=== PATIENT | female | born 2000 | race Two or more races ===

== ENCOUNTER 2024-08-15 16:40 | Inpatient (IN) | payer MEDICAID, OTHER ==
[~2024-08-15] VITALS: Ht 157.5 cm; Wt 48.2 kg
--- NOTE | 2024-08-15 17:01 | ED.PDOC ---
HPI Allergic reaction HPI Comments HPI: 24-year-old female a one presents to the emergency department for evaluation of a hives/rash that started this past Patrick after she started her care pills. Patient went to urgent care yesterday and was prescribed loratadine. Patient has been applying some cream over the areas of rashes but s he feels it is not improving and flares up again. She points to her medial thighs and showed me some pictures of her extremities of hives. Denies any other acute symptoms. Patient describes the hives being itchy. Initial Vitals: Temp : 98F BP: 128/95 HR: 109 RR: 19 O2 Sat.: 100% Past Medical History: Granulomatous Mastitis Past Surgical History: Denies Social History: Denies smoking, ETOH, or drug use. Medications: Loratadine Allergies: NKDA HPI: Poor Historian. Past Medcial History: Past Surgical History: REVIEW OF SYSTEMS: CONSTITUTIONAL: Denies acute: fever, diaphoresis, chills, generalized weakness. HEAD: Denies acute: headache, photophobia Eyes: Denies acute: Double vision, vision loss, eye pain, eye discharge. EARS: Denies acute: tinnitus, hearing loss, ear discharge, ear pain, THROAT: Denies acute: sore throat, swelling, difficulty swallowing , pain with swallowing, change in voice. NECK: Denies acute: neck pain, neck swelling, stiff neck. HEART: Denies acute : chest pain, palpitations, LUNGS: Denies acute: SOB, wheezing, cough, hemoptysis ABDOMEN: Denies acute: abdominal pain, Nausea, Vomiting, diarrhea, melena , hematemesis, hematochezia SKIN: Denies acute: EXTREMITIES: Denies acute: calf pain, numbness, tingling, weakness, denies pain in extremity. Denies acute: Low back pain. Neuro: Denies acute: focal neurological deficit, motor or sensory focal neurological deficit, tremors, seizure like activity, confusion, dizziness, change in mental status, loss of bowel or bladder function, cauda equina like symptoms. : Denies acute: dysuria, hematuria, flank pain, increase in urinary frequency. PSYCH: Denies acute: hallucination, suicidal ideation, homicidal ideation. FEMALE: Denies acute: abnormal vaginal bleeding, foul odor, unusual discharge. PHYSICAL EXAM: General: no acute distress, awake and alert. Head: normocephalic, atraumatic. Neck: supple, trachea is midline, no swelling. Throat: Normal phonation. No obstruction, no swelling, no exudates, no erythema, no drooling, no tripoding. Eyes:, no erythema, no purulent discharge, no proptosis, no icterus. Heart: regular rate, regular rhythm, no significant murmur appreciated. Lungs: no apparent respiratory distress, Able to speak in full sentences. No wheezing, no rhonchi, no crackles. No stridors Clear to auscultation bilaterally. Abdomen: non tender to palpation, non distended, soft, no guarding, no rebound, + bowel sounds. Neuro: Awake, Alert, oriented to name, self, situation, follows commands GCS=15. Speech is normal. Skin: no petechia, no purpura, no cyanosis, non-pale, not jaundice. Noted hives in the medial thigh in minimal on bilateral AC fossa Lower extremities: --no - Pitting edema no deformity, no focal swelling, no calf TTP. Makes eye contact. moves all four extremities. Face: no apparent facial droop. Ambulating in the ED independently. Chief Complaint: Rash Time Seen by MD: 16:59 Reviewed Notes: Medications, Allergies Information Source: Patient Mode of Arrival: Ambulatory Was a procedure done? Was a procedure done?: No X-Ray, Labs, Meds, VS Vital Signs Date Time Temp Pulse Resp B/P (MAP) Pulse Ox O2 Delivery O2 Flow Rate FiO2 08/15/24 19:37 79 08/15/24 19:30 Room Air* 0 21 08/15/24 17:54 18 98 Room Air* 0 21 08/15/24 16:58 98.0 109 19 128/95 (106) 100 Lab Test 08/15/24 17:13 Range/Units White Blood Count 9.6 4.4-10.8 10^3/uL Red Blood Count 4.74 4.0-5.20 10^6/uL Hemoglobin 14.4 12.2-16.2 g/dL Hematocrit 42.7 36.0-46.0 % Mean Corpuscular Volume 90.1 80.0-100.0 fL Mean Corpuscular Hemoglobin 30.4 28.0-32.0 pg Mean Corpuscular Hemoglobin Concent 33.8 32.0-36.0 g/dL Red Cell Distribution Width 14.1 11.8-14.3 % Platelet Count 366 140-450 10^3/uL Mean Platelet Volume 6.8 L 6.9-10.8 fL Neutrophils (%) (Auto) 77.2 37.0-80.0 % Lymphocytes (%) (Auto) 14.6 10.0-50.0 % Monocytes (%) (Auto) 6.7 0.0-12.0 % Eosinophils (%) (Auto) 1.2 0.0-7.0 % Basophils (%) (Auto) 0.3 0.0-2.0 % Neutrophils # (Auto) 7.4 1.6-8.6 10 ^3/uL Lymphocytes # (Auto) 1.4 0.4-5.4 10 ^3/uL Monocytes # (Auto) 0.6 0-1.3 10 ^3/uL Eosinophils # (Auto) 0.1 0-0.8 10 ^3/uL Basophils # (Auto) 0 0-0.2 10 ^3/uL Nucleated Red Blood Cells 0.1 % Sodium Level 137 136-145 mmol/L Potassium Level 3.9 3.5-5.1 mmol/L Chloride Level 104 98-107 mmol/L Carbon Dioxide Level 28 20-31 mmol/L Anion Gap 5 5-15 Blood Urea Nitrogen 8 L 9-23 mg/dL Creatinine 0.65 0.550-1.02 mg/dL Glomerular Filtration Rate Calc 125 >90 mL/min BUN/Creatinine Ratio 12.3 10.0-20.0 Serum Glucose 105 74-106 mg/dL Calcium Level 9.8 8.7-10.4 mg/dL Total Bilirubin 0.3 0.2-1.0 mg/dL Aspartate Amino Transferase (AST) 12 L 13-40 U/L Alanine Aminotransferase (ALT) 21 7-40 U/L Alkaline Phosphatase 49 46-116 U/L Total Protein 7.1 5.7-8.2 g/dL Albumin 4.3 3.2-4.8 g/dL Current Medications Medications (Trade) Dose Ordered Sig/Luke Route Start Time Stop Time Status Last Admin Diphenhydramine HCl (Benadryl Injection) 25 mg ONCE ONCE IV 08/15/24 17:00 08/15/24 17:32 DC 08/15/24 17:51 Famotidine (Pepcid Injection) 20 mg ONCE ONCE IV 08/15/24 17:00 08/15/24 17:32 DC 08/15/24 17:51 Time of 1ST Reevaluation: 17:59 Reevaluation 1ST: Unchanged Patient Education/Counseling: Diagnosis, Treatment Family Education/Counseling: No Family Present Departure 1 Departure Time of Disposition: 20:31 Impression: Primary Impression: Allergic reaction Additional Impressions: Hives Syncope and collapse Disposition: ADMITTED INPATIENT Admit to: Tele Condition: Guarded Discharged With: Self Critical Care Note Critical Care Time?: No I personally scribed for GILMA FARRAR DO ([email or web address]) on 08/15/24 at 17:01. Electronically submitted by Theodore Eisenberg ([email or web address]). GILMA FARRAR DO Aug 15, 2024 17:01
[2024-08-15 17:42] LABS: Basophils # (auto) 0 10 ^3/uL (0-0.2); Basophils % (auto) 0.3 % (0.0-2.0); Eosinophils # (auto) 0.1 10 ^3/uL (0-0.8); Eosinophils % (auto) 1.2 % (0.0-7.0); Hematocrit 42.7 % (36.0-46.0); Hemoglobin 14.4 g/dL (12.2-16.2); Lymphocytes # (auto) 1.4 10 ^3/uL (0.4-5.4); Lymphocytes % (auto) 14.6 % (10.0-50.0); Mean Corpuscular Hemoglobin 30.4 pg (28.0-32.0); Mean Corpuscular Hgb Conc. 33.8 g/dL (32.0-36.0); Mean Corpuscular Volume 90.1 fL (80.0-100.0); Monocytes # (auto) 0.6 10 ^3/uL (0-1.3); Monocytes % (auto) 6.7 % (0.0-12.0); Neutrophils # (auto) 7.4 10 ^3/uL (1.6-8.6); Neutrophils % (auto) 77.2 % (37.0-80.0); Nucleated Red Blood Cells % 0.1 %; Platelet Count (auto) 366 10^3/uL (140-450); Red Blood Cells 4.74 10^6/uL (4.0-5.20); Red Cell Distribution Width 14.1 % (11.8-14.3); White Blood Cell 9.6 10^3/uL (4.4-10.8)
[2024-08-15] MEDS: diphenhdrAMINE HCL 50 MG/1 ML VL IV ONE (17:51)
[2024-08-15] MEDS: FAMOTIDINE (10MG/ML) 2ML VL IV ONE (17:51)
[2024-08-15 17:54] VITALS: RESP 18; O2SAT 98
[2024-08-15 18:00] LABS: Alanine Aminotransferase 21 U/L (7-40); Albumin 4.3 g/dL (3.2-4.8); Alkaline Phosphatase 49 U/L (46-116); Anion Gap 5 (5-15); BUN/Creatinine Ratio 12.3 (10.0-20.0); Bilirubin, Total 0.3 mg/dL (0.2-1.0); Calcium 9.8 mg/dL (8.7-10.4); Carbon Dioxide 28 mmol/L (20-31); Chloride 104 mmol/L (98-107); Glucose 105 mg/dL (74-106); Potassium 3.9 mmol/L (3.5-5.1); Sodium 137 mmol/L (136-145); Total Protein 7.1 g/dL (5.7-8.2)
[2024-08-15 18:05] LABS: Aspartate Aminotransferase 12 U/L (13-40); Blood Urea Nitrogen 8 mg/dL (9-23)
[2024-08-15] MEDS ORDERED: NITROGLYCERIN 0.4 MG SL TAB SL PRN ×2 (21:00→21:15)
[2024-08-15] MEDS ORDERED: ONDANSETRON HCL 4 MG/2 ML VIAL IV PRN ×2 (21:00→21:15)
[2024-08-15] MEDS ORDERED: DOCUSATE SOD 100 MG CAP PO PRN ×2 (21:00→21:15)
[2024-08-15] MEDS ORDERED: ACETAMINOPHEN 325 MG TAB PO PRN ×2 (21:00→21:15)
[2024-08-15] MEDS ORDERED: MORPHINE SULFATE INJ 2 MG/ml SYRG IV PRN ×4 (21:00→21:15)
--- NOTE | 2024-08-15 21:19 | DVHHPRES ---
History of Present Illness Resident Creating Document: [facility] RESIDENT History of Present Illness patient is 24 years old female , 7 weeks , history of granulomatous mastitis of the right breast, anxiety came with a complaint of rash. As he took some medication on Wednesday and started having rash and Wednesday it all went off. But all Wednesday the rest came back and she use some cream on it. Patient reported going to an ER on Wednesday and she will to go to ER if rash gets worse. Patient reported that the rash is getting worse especially on the inner thigh and right side of the hip. Rashes is itchy and sometime it can be painful. Patient also reported that the ER today she fainted twice once during drawing the blood and also the next morning when she was given some iv medications. Patient reported feeling some nausea and some dizziness before she passed out also post pending she felt some nausea and some confusion. Denied bowel or bladder incontinence or tongue biting. On further discussion patient also reported that she has been having this issue going on for since her childhood and the CRC almost having fainting twice a month. Patient reported that she saw Previously and they did a thorough workup but no reason was found why she is having fainting. Patient denied any shortness of breath, chest pain, acute joint pain or swelling, constipation or diarrhea, dysarthria or change in vision. Initial lab workup including CBC and BNP was nonsignificant. Past Medical History , 7 weeks , history of granulomatous mastitis , Anxiety Past Surgical History None Family History Mom had diabetes mellitus from colon cancer or stomach cancer, Past Social History Patient lives with her boyfriend at home, denies smoking or or alcoholism, ex marijuana use Review of Systems Review of Systems Allergy- meds, newly evident Patient was seen today at the bedside. Cardiovascular- deny acute chest pain or shortness of breath or cough or palpitation Respiratory- denies cough or short of breath or wheezing Gastrointestinal- denies any rectal bleeding, nausea or vomiting Musculoskeletal-denies acute joint swelling or tenderness or redness Neurological- denies acute dysarthria, dysphagia, change in vision Psychiatry- denies depression or SI or HI Allergies: Coded Allergies: NO KNOWN ALLERGIES (Unverified , 08/16/24) Medications Current Medications Medications Dose Ordered Sig/Luke Route Start Time Stop Time Status Last Admin Dose Admin Sodium Chloride 10 ml Q8HR IV 08/15/24 22:00 UNV Ondansetron HCl 4 mg Q4HP PRN IV 08/15/24 21:15 UNV Morphine Sulfate 2 mg Q4HPRN PRN IV 08/15/24 21:15 UNV Morphine Sulfate 2 mg Q30M PRN IV 08/15/24 21:15 UNV Docusate Sodium 100 mg BIDPRN PRN PO 08/15/24 21:15 UNV Acetaminophen 650 mg Q6HP PRN PO 08/15/24 21:15 UNV Nitroglycerin 0.4 mg Q5MINP PRN SL 08/15/24 21:15 UNV Exam Vital Signs Vital Signs Date Time Temp Pulse Resp B/P (MAP) Pulse Ox O2 Delivery O2 Flow Rate FiO2 08/15/24 19:38 87 12 113/73 (86) 100 08/15/24 19:30 Room Air* 0 21 08/15/24 16:58 98.0 Exam General examination- awake, alert, oriented, conversant HEENT- PEERLA, no acute nasal discharge Cardiovascular- S1-S2 audible, rate and rhythm regular, no murmur Respiratory- CTAB, no wheeze or rhonchi Gastrointestinal-nontender, bowel sound+. Nondistended Musculoskeletal-no acute joint swelling or tenderness or redness# Lower extremity- no leg edema Neurological- cranial nerves intact, no acute dysarthria or dysphagia Psychiatry- denies depression or SI or HI Labs/Xrays Labs Test 08/15/24 17:13 Range/Units White Blood Count 9.6 4.4-10.8 10^3/uL Red Blood Count 4.74 4.0-5.20 10^6/uL Hemoglobin 14.4 12.2-16.2 g/dL Hematocrit 42.7 36.0-46.0 % Mean Corpuscular Volume 90.1 80.0-100.0 fL Mean Corpuscular Hemoglobin 30.4 28.0-32.0 pg Mean Corpuscular Hemoglobin Concent 33.8 32.0-36.0 g/dL Red Cell Distribution Width 14.1 11.8-14.3 % Platelet Count 366 140-450 10^3/uL Mean Platelet Volume 6.8 L 6.9-10.8 fL Neutrophils (%) (Auto) 77.2 37.0-80.0 % Lymphocytes (%) (Auto) 14.6 10.0-50.0 % Monocytes (%) (Auto) 6.7 0.0-12.0 % Eosinophils (%) (Auto) 1.2 0.0-7.0 % Basophils (%) (Auto) 0.3 0.0-2.0 % Neutrophils # (Auto) 7.4 1.6-8.6 10 ^3/uL Lymphocytes # (Auto) 1.4 0.4-5.4 10 ^3/uL Monocytes # (Auto) 0.6 0-1.3 10 ^3/uL Eosinophils # (Auto) 0.1 0-0.8 10 ^3/uL Basophils # (Auto) 0 0-0.2 10 ^3/uL Nucleated Red Blood Cells 0.1 % Sodium Level 137 136-145 mmol/L Potassium Level 3.9 3.5-5.1 mmol/L Chloride Level 104 98-107 mmol/L Carbon Dioxide Level 28 20-31 mmol/L Anion Gap 5 5-15 Blood Urea Nitrogen 8 L 9-23 mg/dL Creatinine 0.65 0.550-1.02 mg/dL Glomerular Filtration Rate Calc 125 >90 mL/min BUN/Creatinine Ratio 12.3 10.0-20.0 Serum Glucose 105 74-106 mg/dL Calcium Level 9.8 8.7-10.4 mg/dL Total Bilirubin 0.3 0.2-1.0 mg/dL Aspartate Amino Transferase (AST) 12 L 13-40 U/L Alanine Aminotransferase (ALT) 21 7-40 U/L Alkaline Phosphatase 49 46-116 U/L Total Protein 7.1 5.7-8.2 g/dL Albumin 4.3 3.2-4.8 g/dL Assessment/Plan Assessment/Plan #Macular rash in the inner thigh and on the lateral side of the right hip likely due to allergic reaction -continue Benadryl as prescribed -continue hydrocortisone cream as prescribed # syncope -EKG with a sinus rhythm, no acute ST elevation -continue telemetry -ordered echo 2D -orthostatic vitals # history of granulomatous mastitis -follow outpatient # 3 para 1, 7 weeks -ordered Gynecology and Obstetrics consult # anxiety -continue current management Goals of care/advance care planning; FULL CODE; discussed with the patient >15 minutes PUD prophylaxis: Famotidine DVT prophylaxis: Patient ambulating Plan discussed with Dr. Ware, nursing staff, patient Total time spent on patient evaluation, chart review, assessment and plan, discussion discussion >30 minutes Plan discussed with: Patient Plan discussed with: Patient, Other (RN) My Orders Orders - [facility] RESIDENT Procedure Category Date Status Time Admit ADMIT 08/15/24 Transmitted 20:46 Code Status CODE 08/15/24 Transmitted 20:46 Complete Blood Count LAB 08/16/24 Verified 04:00 Comprehensive LAB 08/16/24 Verified Metabolic Panel 04:00 Oxygen By Nasal RT 08/15/24 Transmitted Cannula 20:46 Stat Ekg For Chest [facility] 08/15/24 In Process Pain 20:46 Notify Md Of Changes [facility] 08/15/24 In Process From Base 20:46 Server Service Assistant For [facility] 08/15/24 In Process 24 Hours 20:46 Emergency Dysrhythmia [facility] 08/15/24 In Process Protocol 20:46 Rhythm Strips Once [facility] 08/15/24 In Process Every Shift 20:46 Thyroid Stimulating LAB 08/15/24 In Process Hormone 20:48 Magnesium LAB 08/15/24 In Process 20:48 Urinalysis LAB 08/15/24 Logged 20:48 Drug Screen LAB 08/15/24 Logged 20:48 Blood Alcohol LAB 08/15/24 In Process 20:48 Immunoglobulin E LAB 08/15/24 In Process 20:48 Sodium Chloride Lock PHA 08/15/24 Logged (Saline Lock Ns) 22:00 Ondansetron Hcl PHA 08/15/24 Logged (Zofran) 21:15 Morphine Sulfate PHA 08/15/24 Logged Injection 21:15 Morphine Sulfate PHA 08/15/24 Logged Injection 21:15 Docusate Sodium PHA 08/15/24 Logged Capsule (Colace 21:15 Acetaminophen Tablet PHA 08/15/24 Logged (Tylenol Tablet) 21:15 Nitroglycerin PHA 08/15/24 Logged Sublingual (Ntrostat 21:15 Date of Service: Aug 15, 2024 Billing Provider: MARIESLA WARE MD Common Visit Codes: 90322-NFLOLSO INP/OBS CARE (HIGH) S[facility] MONTERROSO Aug 15, 2024 21:19 MARISELA WARE MD Aug 17, 2024 08:18
[2024-08-15 21:31] LABS: Blood Alcohol < 3.0 mg/dL (<10); Magnesium 2.1 mg/dL (1.6-2.6)
[2024-08-15] MEDS ORDERED: SODIUM CHLOR 0.9% PF (SALINE LOCK) 10ML VIAL/SYR IV SCH (22:00)
[2024-08-15 23:40] VITALS: PULSE 82; RESP 16; O2SAT 99
[2024-08-15] MEDS: SODIUM CHLORIDE 0.9% 1,000 ML IV ONE (23:48)
[2024-08-16] VITALS (11 sets, daily range): BP systolic 98–129; BP diastolic 60–84; PULSE 63–107; RESP 16–20; TEMP 98–98.6; O2SAT 93–100
[2024-08-16] MEDS: SODIUM CHLOR 0.9% PF (SALINE LOCK) 10ML VIAL/SYR IV SCH (03:34)
[2024-08-16] MEDS: FAMOTIDINE 20 MG TAB PO SCH (03:35)
[2024-08-16 06:53] LABS: Alanine Aminotransferase 19 U/L (7-40); Albumin 3.8 g/dL (3.2-4.8); Anion Gap 7 (5-15); BUN/Creatinine Ratio 13.3 (10.0-20.0); Calcium 9.1 mg/dL (8.7-10.4); Carbon Dioxide 26 mmol/L (20-31); Potassium 4.2 mmol/L (3.5-5.1); Sodium 141 mmol/L (136-145)
[2024-08-16 06:54] LABS: Bilirubin, Total 0.2 mg/dL (0.2-1.0); Total Protein 5.9 g/dL (5.7-8.2)
[2024-08-16 06:56] LABS: Basophils # (auto) 0 10 ^3/uL (0-0.2); Basophils % (auto) 0.2 % (0.0-2.0); Eosinophils # (auto) 0.2 10 ^3/uL (0-0.8); Glucose 93 mg/dL (74-106); Hematocrit 38.4 % (36.0-46.0); Hemoglobin 12.9 g/dL (12.2-16.2); Lymphocytes # (auto) 1.7 10 ^3/uL (0.4-5.4); Lymphocytes % (auto) 19.2 % (10.0-50.0); Mean Corpuscular Hemoglobin 30.1 pg (28.0-32.0); Mean Corpuscular Hgb Conc. 33.6 g/dL (32.0-36.0); Mean Corpuscular Volume 89.6 fL (80.0-100.0); Monocytes # (auto) 0.8 10 ^3/uL (0-1.3); Monocytes % (auto) 8.6 % (0.0-12.0); Neutrophils # (auto) 6.1 10 ^3/uL (1.6-8.6); Nucleated Red Blood Cells % 0.1 %; Platelet Count (auto) 316 10^3/uL (140-450); Red Blood Cells 4.29 10^6/uL (4.0-5.20); Red Cell Distribution Width 13.7 % (11.8-14.3); White Blood Cell 8.8 10^3/uL (4.4-10.8)
[2024-08-16 07:02] LABS: Alkaline Phosphatase 41 U/L (46-116); Aspartate Aminotransferase < 8 U/L (13-40); Blood Urea Nitrogen 8 mg/dL (9-23); Chloride 108 mmol/L (98-107)
[2024-08-16 07:13] LABS: Urine Bacteria None Seen /hpf (None Seen)
[2024-08-16 07:21] LABS: INR 1.01 (0.9-1.15); Prothrombin Time 10.7 sec (9.3-11.8)
[2024-08-16 07:23] LABS: Urine Blood Negative /uL (Negative); Urine Clarity Turbid (Clear); Urine Color Light-Yellow (Yellow); Urine Protein, UAD Negative (Negative); Urine Specific Gravity 1.024 (1.001-1.035); Urine Urobilinogen Normal (Negative); Urine WBC 5 /hpf (0 - 5)
[2024-08-16 07:35] LABS: Amphetamine Screen, Urine Neg (NEGATIVE); Barbiturate Scree,Urine Neg (NEGATIVE); Benzodiazephine Screen, Urine Neg (NEGATIVE)
[2024-08-16 07:36] LABS: Cannabinoid Screen, Urine Pos (NEGATIVE); Cocaine Screen, Urine Neg (NEGATIVE); Opiate Scree,Urine Neg (NEGATIVE); Phencyclidine Screen, Urine Neg (NEGATIVE)
[2024-08-16] MEDS: HYDROCORTONE 1% TOPICAL CREAM 30 GM TUBE TOP SCH (10:00)
--- NOTE | 2024-08-16 11:32 | DVHPNRES ---
Progress Note Date Seen: Aug 16, 2024 Resident Creating Document: CORY RUSSELL RESIDENT Has the PT tested + for MRSA If YES, has PT been informed?: No Medical Necessity Reason Pt with a Central, PICC or Fol: No Subjective Review of Systems A 24 year old female , 7 weeks , history of granulomatous mastitis of the right breast, anxiety came with a complaint of rash. As he took some medication on Wednesday and started having rash and Wednesday it all went off. But all Wednesday the rest came back and she use some cream on it. Patient reported going to an ER on Wednesday and she will to go to ER if rash gets worse. Patient reported that the rash is getting worse especially on the inner thigh and right side of the hip. Rashes is itchy and sometime it can be painful. Patient also reported that the ER today she fainted twice once during drawing the blood and also the next morning when she was given some iv medications. Patient reported feeling some nausea and some dizziness before she passed out also post pending she felt some nausea and some confusion. Denied bowel or bladder incontinence or tongue biting. On further discussion patient also reported that she has been having this issue going on for since her childhood and the CRC almost having fainting twice a month. Patient reported that she saw Previously and they did a thorough workup but no reason was found why she is having fainting. Patient denied any shortness of breath, chest pain, acute joint pain or swelling, constipation or diarrhea, dysarthria or change in vision. Initial lab workup including CBC and BNP was nonsignificant. Past Medical History , 7 weeks , history of granulomatous mastitis , Anxiety Past Surgical History None Family History Mom had diabetes mellitus from colon cancer or stomach cancer, Past Social History Patient lives with her boyfriend at home, denies smoking or or alcoholism, ex marijuana use Objective vital signs Vital Sign Date Time Temp Pulse Resp B/P (MAP) Pulse Ox O2 Delivery O2 Flow Rate FiO2 08/16/24 09:00 98.3 74 17 109/68 (82) 97 98.3 08/16/24 01:38 Room Air* 0 21 Total Intake and Output 08/15/24 08/15/24 08/16/24 15:00 23:00 07:00 Intake Total 180 ml Balance 180 ml medications Current Medications Medications Dose Ordered Sig/Luke Route Start Time Stop Time Status Last Admin Dose Admin Sodium Chloride 10 ml Q8HR IV 08/15/24 22:00 08/16/24 06:42 10 ML Ondansetron HCl 4 mg Q4HP PRN IV 08/15/24 21:15 Morphine Sulfate 2 mg Q4HPRN PRN IV 08/15/24 21:15 Morphine Sulfate 2 mg Q30M PRN IV 08/15/24 21:15 Docusate Sodium 100 mg BIDPRN PRN PO 08/15/24 21:15 Acetaminophen 650 mg Q6HP PRN PO 08/15/24 21:15 Nitroglycerin 0.4 mg Q5MINP PRN SL 08/15/24 21:15 Diphenhydramine HCl 25 mg Q8HP PRN PO 08/15/24 22:00 Famotidine 20 mg Q12HR PO 08/15/24 22:00 08/16/24 09:14 20 MG Zinc Acetate/ Diphenhydramine 1 applic Q8HR TOP 08/16/24 14:00 Examination General examination- awake, alert, oriented, conversant HEENT- PEERLA, no acute nasal discharge Cardiovascular- S1-S2 audible, rate and rhythm regular, no murmur Respiratory- CTAB, no wheeze or rhonchi Gastrointestinal-nontender, bowel sound+. Nondistended Musculoskeletal-no acute joint swelling or tenderness or redness, small hives and scratches Lower extremity- no leg edema Neurological- cranial nerves intact, no acute dysarthria or dysphagia Psychiatry- denies depression or SI or HI laboratory and microbiology Laboratory Tests 08/16/24 05:53 Test 08/16/24 05:53 Range/Units Serum Glucose 93 74-106 mg/dL Problem List/Assessment/Plan Problem List/Assessment/Plan #Macular rash in the inner thigh and on the lateral side of the right hip likely due to allergic reaction -continue Benadryl cream and IV # syncope, vasovagal -EKG with a sinus rhythm, no acute ST elevation -continue telemetry -pending echo 2D -orthostatic vitals # history of granulomatous mastitis -follow outpatient # 3 para 1, 7 weeks Gynecology and Obstetrics consult: f/u as outpatient Labs pending Stron # anxiety -continue current management #cannabinoid use?? Strongly counseling about cessation during , she stated the last consumption was on Nov before she knew about the Goals of care/advance care planning; FULL CODE; discussed with the patient >15 minutes Plan discussed with Dr. Lord, nursing staff, patient Total time spent on patient evaluation, chart review, assessment and plan, discussion discussion >30 minutes Plan discussed with: Patient Plan discussed with: Patient, Other (rn) My Orders My Orders Orders - CORY RUSSELL RESIDENT Procedure Category Date Status Time RPR LAB 08/16/24 In Process 08:25 Hepatitis B Surface LAB 08/16/24 In Process Antigen 08:25 Rubella LAB 08/16/24 In Process 08:25 Toxoplasma Gondii Igg LAB 08/16/24 In Process Antibody 08:25 Toxoplasma Gondii Igm LAB 08/16/24 In Process Antibody 08:25 Diphenhdramine-Zinc PHA 08/16/24 In Process Cream (Benadryl Crea 14:00 Date of Service: Aug 16, 2024 Billing Provider: RUDY LORD MD Common Visit Codes: 59352-[id number] INP/OBS CARE(HIGH) Secondary Visit Codes: 75447-ZURDESOU CARE PLAN 30 MINUTES CORY RUSSELL Aug 16, 2024 11:32 RUDY LORD MD Aug 21, 2024 18:13
[2024-08-16] MEDS: diphenhdrAMINE-ZINC ACETATE 1 APPLIC APPL TOP SCH (14:00)
--- NOTE | 2024-08-16 15:08 | DVHINCON2 ---
REASON FOR CONSULTATION: and allergic reaction. HISTORY OF PRESENT ILLNESS: The patient is a 24-year-old 3, para 1, estimated gestational age of 7 weeks, admitted for allergic reaction associated with hives. The patient has history of granulomatous mastitis. She states she took vitamin and started with rash. She took Claritin. She reports having had inner thigh rash as well as her arms. It appears that the patient has extensive history of allergic reaction. No report of vaginal bleeding or vaginal discharge. PAST MEDICAL HISTORY: History of anxiety and granulomatous mastitis. PAST SURGICAL HISTORY: None. SOCIAL HISTORY: None. FAMILY HISTORY: Positive for diabetes. ALLERGIES: No known drug allergies. REVIEW OF SYSTEMS: CONSTITUTIONAL: No fevers or chills. CARDIOVASCULAR: No chest pain, palpitation. LUNGS: No shortness of breath or wheezing. GASTROINTESTINAL: No abdominal pain, constipation or diarrhea. GENITOURINARY: No vaginal bleeding. PSYCHIATRIC: No depression. PHYSICAL EXAMINATION: VITAL SIGNS: Stable, afebrile. HEENT: Within normal limits. CARDIOVASCULAR: Regular rate and rhythm. LUNGS: Clear to auscultation. BREASTS: Symmetrical. Right breast more cystic discoloration of skin seen. No nipple discharge. ABDOMEN: Soft, nontender. PELVIC: No vaginal exam needed at this point. The patient is not bleeding. The patient is early gestation. EXTREMITIES: No clubbing, cyanosis or edema. IMPRESSION: * Intrauterine at 7 weeks. * Allergic reaction, hives. * Syncope. RECOMMENDATIONS: The patient does not need any aggressive intervention. The patient is advised to follow up with primary OB as soon as she is discharged. Supportive care. Thank you very much for this consultation. We will sign off. DO LIS Richards/MADDIE TID: [id number] RECEIPT: [id number]
--- NOTE | 2024-08-16 17:04 | DVHSR ---
APPROVED REPORT EXAM: Two-dimensional and M-mode echocardiogram with Doppler and color Doppler. Blood Pressure: 98/60 mmHg INDICATION Syncope RISK FACTORS Height: 5'2, Weight: 109 DIMENSIONS LVDd4.8 (3.8-5.7cm)LA (2D)3.5 (1.9-4.0cm)Aortic Root3.1 (2.0-3.7cm) LVDs3.3 (2.5-4.0cm)LA (MM) (1.9-4.0cm)Aortic Cusp Exc1.5 (1.5-2.0cm) EF (%) 59.0 (55-70%)Rt. Atrium2.7 (1.9-4.0cm)Asc. Aorta cm IVSd0.7 (0.7-1.1cm)RV (D) (1.8-2.4cm) PWd0.6 (0.7-1.1cm) Mitral Valve MitralMitral Stenosis E wave0.55m/sMV Mean GR.mmHg A wave0.56m/sMV Peak GR.mmHg E/A ratio1.02D MVAcm2 DECEL [id number] 1/2 Timems Aortic Valve Aortic ValveAortic Stenosis V10.93m/Macie Mean GR.5mmHg V21.48m/Macie Peak GR.9mmHg LVOT Diameter1.9 (1.8-2.4cm)Doppler AVA1.78cm2 Pulmonic Valve V21.07m/s Tricuspid Valve TR Velocity2.15m/s [id number] Other Information Quality : LimitedRhythm : Technically limited study due to body habitus. Conclusion Normal left ventricular size and dimension. Normal left ventricular systolic function estimated ejec tion fraction 55%. There is a grade 1 diastolic dysfunction. Normal right ventricular size and dimension. Normal right ventricular systolic function. Normal biatrial size and dimension. Normal aortic valve structure and function. Normal mitral valve structure and function. Normal tricuspid valve structure and function. The pulmonary valve is grossly normal. No pericardial effusion. New
[2024-08-17] MEDS: diphenhdrAMINE HCL 25 MG CAP PO PRN (00:54)
[2024-08-17 01:00] VITALS: BP 95/58; PULSE 77; RESP 19; TEMP 98.2; O2SAT 98
[2024-08-17 05:00] VITALS: BP 108/65; PULSE 70; RESP 16; TEMP 98.2; O2SAT 98
[2024-08-17 07:06] LABS: RPR Non Reactive (Non Reactive)
[2024-08-17 07:19] LABS: Basophils # (auto) 0 10 ^3/uL (0-0.2); Basophils % (auto) 0.4 % (0.0-2.0); Eosinophils # (auto) 0.2 10 ^3/uL (0-0.8); Eosinophils % (auto) 2.3 % (0.0-7.0); Hematocrit 38.4 % (36.0-46.0); Lymphocytes # (auto) 1.4 10 ^3/uL (0.4-5.4); Lymphocytes % (auto) 19.8 % (10.0-50.0); Mean Corpuscular Hemoglobin 30.3 pg (28.0-32.0); Mean Corpuscular Hgb Conc. 33.8 g/dL (32.0-36.0); Mean Corpuscular Volume 89.7 fL (80.0-100.0); Monocytes # (auto) 0.6 10 ^3/uL (0-1.3); Monocytes % (auto) 8.6 % (0.0-12.0); Neutrophils # (auto) 4.8 10 ^3/uL (1.6-8.6); Neutrophils % (auto) 68.9 % (37.0-80.0); Nucleated Red Blood Cells % 0.1 %; Platelet Count (auto) 311 10^3/uL (140-450); Red Blood Cells 4.29 10^6/uL (4.0-5.20); Red Cell Distribution Width 13.8 % (11.8-14.3)
[2024-08-17 07:26] LABS: Alanine Aminotransferase 21 U/L (7-40); Anion Gap 7 (5-15); BUN/Creatinine Ratio 8.8 (10.0-20.0); Calcium 9.2 mg/dL (8.7-10.4); Carbon Dioxide 24 mmol/L (20-31); Glucose 85 mg/dL (74-106); Potassium 3.7 mmol/L (3.5-5.1); Sodium 139 mmol/L (136-145)
[2024-08-17 07:27] LABS: Albumin 3.8 g/dL (3.2-4.8); Aspartate Aminotransferase 15 U/L (13-40); Bilirubin, Total 0.3 mg/dL (0.2-1.0)
[2024-08-17 07:28] LABS: Total Protein 6.1 g/dL (5.7-8.2)
[2024-08-17 07:29] LABS: Alkaline Phosphatase 40 U/L (46-116); Blood Urea Nitrogen 5 mg/dL (9-23); Chloride 108 mmol/L (98-107)
[2024-08-17 08:00] VITALS: PULSE 80; RESP 18; O2SAT 96
[2024-08-17 09:00] VITALS: BP 111/66; PULSE 76; RESP 14; TEMP 98.1; O2SAT 96
[2024-08-17] MEDS ORDERED: FOLI-119 PO (09:44)
[2024-08-17] MEDS ORDERED: FERR1TAB36 PO (09:44)
[2024-08-17 11:32] VITALS: BP 111/66; PULSE 76; RESP 14; TEMP 98.1; O2SAT 96
[2024-08-17 13:06] LABS: Anti-Nuclear Antibody Direct Negative (Negative)
--- NOTE | 2024-08-17 19:08 | DVHDSRES ---
Discharge Summary Date of Admission Resident Creating Document: CORY RUSSELL RESIDENT Aug 15, 2024 at 20:46 Date of Discharge: Aug 17, 2024 Admitting Diagnosis # syncope, vasovagal Labs/Diagnostic Data: Laboratory Results Test 08/17/24 06:45 08/16/24 08:54 08/16/24 07:00 08/16/24 05:53 White Blood Count 7.0 10^3/uL (4.4-10.8) Red Blood Count 4.29 10^6/uL (4.0-5.20) Hemoglobin 13.0 g/dL (12.2-16.2) Hematocrit 38.4 % (36.0-46.0) Mean Corpuscular Volume 89.7 fL (80.0-100.0) Mean Corpuscular Hemoglobin 30.3 pg (28.0-32.0) Mean Corpuscular Hemoglobin Concent 33.8 g/dL (32.0-36.0) Red Cell Distribution Width 13.8 % (11.8-14.3) Platelet Count 311 10^3/uL (140-450) Mean Platelet Volume 6.8 fL (6.9-10.8) Neutrophils (%) (Auto) 68.9 % (37.0-80.0) Lymphocytes (%) (Auto) 19.8 % (10.0-50.0) Monocytes (%) (Auto) 8.6 % (0.0-12.0) Eosinophils (%) (Auto) 2.3 % (0.0-7.0) Basophils (%) (Auto) 0.4 % (0.0-2.0) Neutrophils # (Auto) 4.8 10 ^3/uL (1.6-8.6) Lymphocytes # (Auto) 1.4 10 ^3/uL (0.4-5.4) Monocytes # (Auto) 0.6 10 ^3/uL (0-1.3) Eosinophils # (Auto) 0.2 10 ^3/uL (0-0.8) Basophils # (Auto) 0 10 ^3/uL (0-0.2) Nucleated Red Blood Cells 0.1 % Sodium Level 139 mmol/L (136-145) Potassium Level 3.7 mmol/L (3.5-5.1) Chloride Level 108 mmol/L (98-107) Carbon Dioxide Level 24 mmol/L (20-31) Anion Gap 7 (5-15) Blood Urea Nitrogen 5 mg/dL (9-23) Creatinine 0.57 mg/dL (0.550-1.02) Glomerular Filtration Rate Calc 129 mL/min (>90) BUN/Creatinine Ratio 8.8 (10.0-20.0) Serum Glucose 85 mg/dL (74-106) Calcium Level 9.2 mg/dL (8.7-10.4) Total Bilirubin 0.3 mg/dL (0.2-1.0) Aspartate Amino Transferase (AST) 15 U/L (13-40) Alanine Aminotransferase (ALT) 21 U/L (7-40) Alkaline Phosphatase 40 U/L (46-116) Total Protein 6.1 g/dL (5.7-8.2) Albumin 3.8 g/dL (3.2-4.8) Rapid Plasma Reagin Non reactive (Non Reactive) HIV (1&2) Antibody Negative (Negative) Urine Color Light-yellow (Yellow) Urine Clarity Turbid (Clear) Urine pH 7.0 (5.0-9.0) Urine Specific [place] 1.024 (1.001-1.035) Urine Protein Negative (Negative) Urine Ketones Negative (Negative) Urine Blood Negative /uL (Negative) Urine Nitrite Negative (Negative) Urine Bilirubin Negative (Negative) Urine Urobilinogen Normal mg/dL (Negative) Urine Leukocyte Esterase Trace /uL (Negative) Urine RBC 2 /hpf (0 - 4) Urine WBC 5 /hpf (0 - 5) Urine Squamous Epithelial Cells Mod /hpf (<5) Urine Bacteria None seen /hpf (None Seen) Urine Glucose Normal mg/dL (Normal) Urine Opiates Screen Neg (NEGATIVE) Urine Fentanyl Screen Neg (NEGATIVE) Urine Barbiturates Screen Neg (NEGATIVE) Urine Phencyclidine Screen Neg (NEGATIVE) Urine Amphetamines Screen Neg (NEGATIVE) Urine Benzodiazepines Screen Neg (NEGATIVE) Urine Cocaine Screen Neg (NEGATIVE) Urine Cannabinoids Screen Pos (NEGATIVE) Prothrombin Time 10.7 sec (9.3-11.8) Prothrombin Time INR 1.01 (0.9-1.15) D-Dimer, Quantitative 0.69 mg/L FEU (0.0-0.49) Hepatitis B Surface Antigen Negative (Negative) Test 08/15/24 21:55 08/15/24 17:13 Beta HCG, Quantitative 01428.3 mIU/mL (1.5-4.2) Anti-Nuclear Antibody Screen Negative (Negative) Magnesium Level 2.1 mg/dL (1.6-2.6) Thyroid Stimulating Hormone (TSH) 0.56 uIU/mL (0.55-4.78) Plasma/Serum Blood Alcohol < 3.0 mg/dL (<10) Other Laboratory Tests 08/17/24 06:45 Brief Hx & Hospital Course: A 25-year-old female, , at 7 weeks of gestation, came to the ED due to a maculopapular rash involving the inner thigh and lateral side of the right hip, likely due to an allergic reaction to her medication. She denied chest pain, palpitations, or shortness of breath. EKG revealed sinus rhythm without ST elevation. The patient also has a history of granulomatous mastitis, anxiety, and recent cessation of cannabinoid use in July upon learning of her . During her admission, patient had a vasovagal syncope due to distress at blood withdrawl, ECHO and EKG were done wth no abnormalities, patient previosly had episodes like that before. Pt was advised to continue treatment ith topical benadryl due to hives. She was counseled on care and the importance of avoiding marijuana use during . Pt was seen by Dr Mcleod, adobe developer during her admission, also labs were ordered, with no abnormalities, No acute issues were noted at discharge, and she was referred to outpatient obstetrics and gynecology for follow-up. She was discharged in stable condition with reassurance and clear instructions on recognizing signs of allergic reactions or complications requiring emergent evaluation. General examination- awake, alert oriented, conversant HEENT- PEERLA, no acute nasal discharge Cardiovascular- S1-S2 audible, rate and rhythm regular, no murmur Respiratory- CTAB, no wheeze or rhonchi Gastrointestinal-nontender, bowel sound+. Nondistended Musculoskeletal-no acute joint swelling or tenderness or redness# Lower extremity- no leg edema Neurological- cranial nerves intact, no acute dysarthria or dysphagia Psychiatry- denies depression or SI or HI Skin- no acute rash or purpura Case discussed with Dr Concepcion Time spent on care 23 min Consults/Reason for consult adobe developer care Operations or Procedures echo: Normal left ventricular size and dimension. Normal left ventricular systolic function estimated ejection fraction 55%. There is a grade 1 diastolic dysfunction. Normal right ventricular size and dimension. Normal right ventricular systolic function. Normal biatrial size and dimension. Normal aortic valve structure and function. Normal mitral valve structure and function. Normal tricuspid valve structure and function. The pulmonary valve is grossly normal. No pericardial effusion Condition at Discharge: Stable Final Diagnosis/Problems List #Macular rash in the inner thigh and on the lateral side of the right hip likely due to allergic reaction # syncope, vasovagal # history of granulomatous mastitis # 3 para 1, 7 weeks # anxiety #cannabinoid use Discharge Disposition: Home Discharge Instruct/Medications Diet: Regular Activity: No Restrictions, As Tolerated Follow Up/Referral: f/u adobe developer in less than 7 days Medications: see prescription Discharge Statement: "Patient was advised to return to the ER or call 911 if any headaches, dizziness, shortness of breath, chest pain, abdominal pain, bleeding, fevers, or worsening of medical condition. Patient was counseled about treatment plan, medications, possible side effects, patientverbalized understanding. All questions were answered to the best of my ability. This discharge took greater then 30 minutes in planning, reviewing documentation, counseling the patient, and discussing with other team members." ASSESSMENT ASSESSMENT Assessment vasovagal syncope hives Date of Service: Aug 17, 2024 Billing Provider: RUDY CONCEPCION MD Common Visit Codes: 78667-OBT/OBS DISCH DAY >30min CORY RUSSELL RESIDENT Aug 17, 2024 19:08 RUDY CONCEPCION MD Aug 21, 2024 18:14
== END 2024-08-17 12:15 | disposition home or self-care (01) | DRG 566 ==
LOC: ER 16:40 → OVERFLOW 20:46 → ER 20:48 → TELE-CENTR 08-16 01:32 → CENTRAL 08-17 09:03
PROVIDERS: ADMIT Internal Medicine Geriatric Medicine; ATTEND Internal Medicine Geriatric Medicine
DX: O9A.211 Injury, poisoning and certain other consequences of external causes complicating pregnancy, first trimester (principal); O26.811 Pregnancy related exhaustion and fatigue, first trimester; F41.9 Anxiety disorder, unspecified; O99.711 Diseases of the skin and subcutaneous tissue complicating pregnancy, first trimester; O99.341 Other mental disorders complicating pregnancy, first trimester; R55 Syncope and collapse; Z3A.01 Less than 8 weeks gestation of pregnancy; Z83.3 Family history of diabetes mellitus; Z80.0 Family history of malignant neoplasm of digestive organs; L27.0 Generalized skin eruption due to drugs and medicaments taken internally; T50.995A Adverse effect of other drugs, medicaments and biological substances, initial encounter
CPT/HCPCS: 36415; 80053; 80307; 80320; 81001; 82785; 83735; 84443; 84702; 85025; 85379; 85610; 86038; 86592; 86703; 86762; 86777; 86778; 86850; 86900; 86901; 87340; 93306; 96374; 96375; G0378; J3490